=== PATIENT | female | born 1985 | race American Indian/Alaskan Native ===

== ENCOUNTER 2021-06-11 10:23 | Emergency (ER) | payer SELFPAY ==
[2021-06-11 10:31] VITALS: BP 129/88
--- NOTE | 2021-06-11 10:49 | Emergency Department Report ---
ED General Adult HPI - General Chief complaint: Chest Pain Stated complaint: CHEST PAIN Time Seen by Provider: 06/11/21 10:30 Source: patient Mode of arrival: Ambulatory Limitations: No Limitations - History of Present Illness Initial comments: Patient presented from work by private auto secondary to chest pain. This morning, while at work she started having sharp and stabbing chest pain. This is substernally located. It is worse with movement and coughing. It is better when she remains still. There is no history of recent travel or trauma. She has no vomiting or diarrhea. She has not had any significant fevers or shortness of breath. She has not had a productive cough. There has been no unilateral pain swelling. Patient states she is never had symptoms like this before. Her pain is not worse with inspiration. It does not radiate or migrate. - Related Data Previous Rx's Medication Instructions Recorded Last Taken Type Ibuprofen [Motrin] 600 mg PO Q8H PRN #20 tablet 06/11/21 Unknown Rx Allergies Allergy/AdvReac Type Severity Reaction Status Date / Time No Known Allergies Allergy Verified 06/11/21 10:31 ED Review of Systems ROS: Stated complaint: CHEST PAIN Other details as noted in HPI Comment: All other systems reviewed and negative Constitutional: denies: fever Eyes: denies: eye pain ENT: denies: throat pain Respiratory: denies: cough Cardiovascular: as per HPI Endocrine: denies: unexplained weight loss Gastrointestinal: denies: abdominal pain Genitourinary: denies: dysuria Musculoskeletal: denies: back pain Skin: denies: rash Neurological: denies: headache Hematological/Lymphatic: denies: easy bruising ED Past Medical Hx - Past Medical History Previous Medical History?: No - Family History Family history: no significant - Social History Smoking Status: Never Smoker - Medications Home Medications: Home Medications Medication Instructions Recorded Confirmed Last Taken Type Ibuprofen [Motrin] 600 mg PO Q8H PRN #20 tablet 06/11/21 Unknown Rx ED Physical Exam - General Limitations: No Limitations, Other General appearance: alert, in no apparent distress (Socks noted and normal) - Head Head exam: Present: atraumatic, normocephalic, normal inspection - Eye Eye exam: Present: normal appearance, EOMI - ENT ENT exam: Present: normal exam, normal orophraynx - Neck Neck exam: Present: normal inspection. Absent: meningismus - Respiratory Respiratory exam: Present: normal lung sounds bilaterally. Absent: respiratory distress - Cardiovascular Cardiovascular Exam: Present: regular rate, normal rhythm - GI/Abdominal GI/Abdominal exam: Present: soft. Absent: tenderness - Extremities Exam Extremities exam: Present: normal capillary refill - Back Exam Back exam: Absent: CVA tenderness (R), CVA tenderness (L) - Neurological Exam Neurological exam: Present: alert, oriented X3, CN II-XII intact, normal gait. Absent: motor sensory deficit - Psychiatric Psychiatric exam: Present: normal affect, normal mood - Skin Skin exam: Present: warm, dry ED Course Vital Signs 06/11/21 10:30 Temperature 98.3 F Pulse Rate 88 Respiratory 18 Rate Blood Pressure 129/88 [Left] O2 Sat by Pulse 100 Oximetry - Reevaluation(s) Reevaluation #1: 06/11/21 10:49 EKG and chest x-ray were ordered. Old records reviewed. Reevaluation #2: 06/11/21 11:58 EKG and chest x-ray were noted. Patient was discharged. ED Medical Decision Making - EKG Data -: EKG Interpreted by Me - EKG Data 06/11/21 11:58 EKG shows a normal sinus rhythm at 78 with normal intervals. QRS is 79. QT corrected is 412. Patient has noticed elevation to suggest infarct. There is no ST depression suggestive of ischemia. There is no ectopy noted. This is a normal EKG. There is no old for comparison. - Radiology Data Radiology results: report reviewed - Medical Decision Making Patient presents with a nonexertional chest pain that is sharp and stabbing. It is not pleuritic. I do not believe this represents pulmonary embolism. She has no EKG changes and no exertional chest pain. I do not believe this represents CAD. There is no radiographic evidence of pneumonia or pneumothorax. She does not have a wide mediastinum or pulse deficit. I am not concerned for aortic dissection. Patient was treated symptomatically and referred for ou tpatient evaluation and follow-up. Critical Care Time: No Critical care attestation.: If time is entered above; I have spent that time in minutes in the direct care of this critically ill patient, excluding procedure time. ED Disposition Clinical Impression: Substernal chest pain Disposition: HOME / SELF CARE / HOMELESS Is pt being admited?: No Condition: Stable Instructions: Nonspecific Chest Pain, Adult Additional Instructions: Have a bland diet. Drink plenty water. Return for problems. Follow-up with your regular doctor. If you do not have a regular doctor, follow-up with the referral physician. Prescriptions: Ibuprofen [Motrin] 600 mg PO Q8H PRN #20 tablet PRN Reason: Pain Referrals: PRIMARY MD HOLLI [Primary Care Provider] - 3-5 Days ALIZA COOPER MD [Staff Physician] - 3-5 Days
--- NOTE | 2021-06-11 11:20 | XRay Report ---
XR chest routine 2V INDICATION / CLINICAL INFORMATION: cp. COMPARISON: None available. FINDINGS: SUPPORT DEVICES: None. HEART /PULMONARY VASCULATURE: No significant abnormality. LUNGS / PLEURA: No significant pulmonary or pleural abnormality. No pneumothorax. ADDITIONAL FINDINGS: No significant additional findings. IMPRESSION: 1. No acute findings. Signer Name: Jermain Guan MD Signed: 06/11/2021 11:15 AM Workstation Name: [id number]
--- NOTE | 2021-06-12 09:07 | Electrocardiograph Report ---
[facility] Test Date: 2021-06-11 Test Time: 10:42:23 Pat Name: BELLA WOODWARD Department: Room: Gender: F Mechanic Helper: NAABELLE : 1985 Requested By: ARINA MCGOVERN Order Number: [id number] Reading MD: Doug Ventura Measurements Intervals [place] Rate: 78 P: 23 RI: 146 QRS: 32 QRSD: 79 T: 20 QT: 361 QTc: 412 Interpretive Statements Sinus rhythm No previous ECG available for comparison Electronically Signed On 06-12-2021 9:06:34 EDT by Doug Ventura
== END 2021-06-11 12:38 | disposition home or self-care (01) ==
LOC: ED 10:23
DX: R07.81 Pleurodynia (principal)
CPT/HCPCS: 71046; 93005; 99283